=== PATIENT | female | born 1980 | race Caucasian/White ===

== ENCOUNTER → 2018-09-30 | Outpatient (CLI) | payer BC ==
[~2018-09-30] MED LIST: FLUC50TA PO; MULT-1540 PO
--- NOTE | 2018-10-01 09:44 | RADIOLOGY IMAGING REPORT ---
FACILITY: [facility] - [place] PATIENT NAME: KAREN WERNER : [id number] MR: [id number] V: [id number] EXAM DATE: [id number] ORDERING PHYSICIAN: SHERRI FERNÁNDEZ TECHNOLOGIST: Antonella Hardin PROCEDURE:BILATERAL DIAGNOSTIC DIGITAL MAMMOGRAM WITH CAD ASSISTED INTERPRETATION & 3D TOMOSYNTHESIS COMPARISON:None. INDICATIONS:LEFT BREAST NIPPLE DISCHARGE FINDINGS: The breasts are heterogeneously dense which can obscure small masses. Incidentally there is a small intramammary lymph node in the upper outer quadrant of the Left breast. DIAGNOSTIC CATEGORY 2--BENIGN FINDING. RECOMMENDATIONS: CLINICAL EVALUATION. IMPRESSION: BIRADS 2: Benign finding. No significant mammographic abnormality identified. Today's Left breast Ultrasound likewise revealed no abnormality therefore clinical follow-up recommended for patient's Left nipple discharge. Dictated by: Aurora Weeks M.D. on 09/30/2018 at 16:43 Transcribed by: GERONIMO on 10/01/2018 at 8:47 Approved by: Aurora Weeks M.D. on 10/01/2018 at 9:43 [facility]
--- NOTE | 2018-10-01 09:45 | RADIOLOGY IMAGING REPORT ---
FACILITY: [facility] - [place] PATIENT NAME: KAREN WERNER : [id number] MR: [id number] V: [id number] EXAM DATE: [id number] ORDERING PHYSICIAN: SHERRI FERNÁNDEZ TECHNOLOGIST: Carlee Greenberg RDMS(ABD,OBGYN,BR),RVT PROCEDURE:US LEFT BREAST COMPLETE COMPARISON:Today's diagnostic Left breast mammogram. INDICATIONS:LEFT BREAST NIPPLE DISHCARGE FINDINGS: The Left breast was imaged revealing no sonographic abnormality to account for patient's Left nipple discharge. Today's mammogram likewise revealed no abnormality therefore clinical follow-up recommended for patient's Left nipple discharge. DIAGNOSTIC CATEGORY 1--NEGATIVE. RECOMMENDATIONS: CLINICAL EVALUATION. IMPRESSION: BIRADS 1: Negative. No sonographic abnormality identified. No mammographic abnormality identified to account for patient's Left nipple discharge therefore clinical follow-up recommended. Dictated by: Aurora Weeks M.D. on 09/30/2018 at 16:40 Transcribed by: GERONIMO on 10/01/2018 at 8:52 Approved by: Aurora Weeks M.D. on 10/01/2018 at 9:43 [facility]
== END ==
LOC: US 01:06
PROVIDERS: ATTEND Nurse Practitioner
DX: N64.3 Galactorrhea not associated with childbirth (principal); N64.52 Nipple discharge
CPT/HCPCS: 77062; 77066

== ENCOUNTER → 2018-10-16 | Outpatient (CLI) | payer BC ==
[~2018-10-16] MED LIST changes: +GADOBENATE 529MG/1ML 15ML VIAL IVP ONE; +NS(*) 0.9% 50 ML BAG 50 ML ONE
--- NOTE | 2018-10-16 16:04 | RADIOLOGY IMAGING REPORT ---
FACILITY: [facility] [place]IENT NAME: Uma Hall : 1980 MR: [id number] V: [id number] EXAM DATE: ORDERING PHYSICIAN: SHERRI FERNÁNDEZ TECHNOLOGIST: Location: [facility] Patient: Uma Hall : 1980 Visit/Account:[id number] Date of Sevice: 10/16/2018 MR BRAIN/BRAIN STEM W/ & W/O CON Comparisons: None. Additional pertinent history: Hyperprolactinemia and galactorrhea TECHNIQUE: Multiplanar, multisequence brain MRI was performed with and without gadolinium contrast. Pituitary mri technique CONTRAST: 13 ml of MultiHance. FINDINGS: Sagittal midline structures and craniocervical junction: Negative. Midline shift: None. Ventricles: Negative. Brain parenchyma: Diffusion weighted imaging: Negative. Gradient sequence: Not performed T2 weighted FLAIR images: Negative. Dedicated imaging through the pituitary fossa: Pituitary stalk/optic chiasm: Negative Pituitary gland/pituitary fossa: 7 mm hypoenhancing focus within the left aspect of the pit uitary gland compatible with an underlying microadenoma. Cavernous sinuses: Negative Skull base flow voids: Negative Extra-axial spaces: Negative. Dural venous sinuses and major arterial flow voids: Negative. Intracranial enhancement: Negative.. Mastoid air cells and paranasal sinuses: Negative. Surrounding soft tissues and orbits: Negative. Impression: 1. 7 mm microadenoma involving the left aspect of the pituitary gland. 2. No other acute intracranial pathology noted. Report Dictated By: Harrison Erazo MD at 10/16/2018 3:56 PM Report E-Signed By: Harrison Erazo MD at 10/16/2018 3:59 PM WSN:[id number]
== END ==
LOC: MRI 02:10
PROVIDERS: ATTEND Nurse Practitioner
DX: D35.2 Benign neoplasm of pituitary gland (principal)
CPT/HCPCS: 70553; A9577; J7050